=== PATIENT | female | born 1940 | race Caucasian/White ===

== ENCOUNTER 2020-03-01 10:44 | Outpatient (CLI) | payer OTHER | END 2020-03-01 10:55 | disposition home or self-care (01) | LOC: NUCLEAR 10:44 | PROVIDERS: ATTEND Obstetrics & Gynecology Maternal & Fetal Medicine | DX: R01.1 Cardiac murmur, unspecified (principal); R94.31 Abnormal electrocardiogram [ECG] [EKG] ==